=== PATIENT | female | born 1985 | race Caucasian/White ===

== ENCOUNTER 2019-01-30 22:28 | Emergency (ER) | payer SELFPAY ==
[~2019-01-30] VITALS: Ht 165.1 cm; Wt 70.3 kg
[2019-01-30 22:37] VITALS: BP 126/90
--- NOTE | 2019-01-30 22:43 | NUR ---
PT TAKEN TO BED 5
--- NOTE | 2019-01-30 22:45 | NUR ---
MOUTH SORE NOTED ON BOTTOM OF LEFT LIP
--- NOTE | 2019-01-30 22:45 | NUR ---
33 Y/O F PRESENTS TO ER C/O MOUTH PAIN X4 MONTHS. PER PT SHE HAS COLD SORES THAT COME AND GO. SORES ARE PAINFUL AND ITCHY. PAINFUL WHEN EATING OR DRINKING. PAIN LEVEL 6/10. PT WAS TAKING AMOXICILLIN Q8H X3 DAYS. PT ALSO TAKING ACETAMINOPHEN FOR THE PAIN. HOB ELEVATED, BED IN LOWEST POSITION, BED RAIL UP X1. WAITING FOR ERMD TO EVALUATE PT. ALLERGIES: NKA MED HX: NONE
--- NOTE | 2019-01-30 23:11 | NUR ---
Dr. Paece examining patient.
[2019-01-30 23:40] VITALS: BP 126/90
--- NOTE | 2019-01-30 23:40 | NUR ---
Patient discharged with v/s stable. Written and verbal after care instructions given and explained.Pt encouraged to wash hands and take all medications as prescribed. Patient alert, oriented and verbalized understanding of instructions. Ambulatory with steady gait. All questions addressed prior to discharge. ID band removed. Patient advised to follow up with PMD. Rx of ACYCLOVIR 400MG, VALTREX 1G, AND ABREVA 10% TOPICAL CREAM WAS given. Patient educated on indication of medication including possible reaction and side effects. Opportunity to ask questions provided and answered.
== END 2019-01-30 23:40 | disposition home or self-care (01) ==
LOC: MED 22:28
DX: B00.1 Herpesviral vesicular dermatitis (principal)
CPT/HCPCS: 99283